=== PATIENT | female | born 2000 | race Caucasian/White ===

== ENCOUNTER 2024-01-28 19:18 | Emergency (ER) | payer OTHER, SELFPAY ==
[2024-01-28 19:24] VITALS: BP 144/08
[2024-01-28] MEDS: ZOFRAN 4 MG IV ×2 (20:09→21:30)
[2024-01-28 20:10] VITALS: BMI 26.6
[2024-01-28] MEDS: NSS 1000 IV (20:10)
[2024-01-28 20:21] VITALS: BP 143/79
[2024-01-28 20:30] LABS: % Basophils 0.5 % (0-2); % Eosinophils 0.2 % (0-6); % Immature Granulocytes 0.4 % (0-0.5); % Monocytes 4.6 % (1.7-9.3); % Neutrophils 82.3 % (42.2-75.2); Absolute Basophils 0.1 10^3/uL (0-0.2); Absolute Immature Granulocytes 0.1 10^3/uL (0-0.05); Absolute Lymphocytes 2.2 10^3/uL (1.2-3.4); Absolute Monocytes 0.9 10^3/uL (0.1-0.6); Absolute Neutrophils 15.2 10^3/uL (1.4-6.5); Hematocrit 45.9 % (37.0-47.0); Hemoglobin 16.4 g/dL (12.0-16.0); Mean Corp Hgb Conc. 35.7 g/dL (33.0-37.0); Mean Corpuscular Hgb 29.8 pg (27.0-31.0); Mean Corpuscular Volume 83.3 fL (81.0-99.0); Mean Platelet Volume 10.6 fL (7.4-10.4); Nucleated Red Blood Cells % 0 %; Platelet Count 458 10^3/uL (130-400); Red Blood Cell Count 5.51 10^6/uL (4.20-5.40); Red Cell Dist. Width 13.2 % (11.5-14.5); White Blood Cell Count 18.5 10^3/uL (4.8-10.8)
--- NOTE | 2024-01-28 20:39 | ED.GENMED ---
History of Present Illness
General
Chief Complaint: Abdominal Symptoms
Source: patient
Exam Limitations: none
Time Seen by Provider: 01/28/24 20:04
Nursing documentation reviewed up to this point in time: agreed with
Travel History
Have you had any contact with someone who has COVID-19?: No
Do you have any symptoms of coronavirus? Fever > 100 degrees, chills, cough, shortness of breath, sore throat, loss of taste or smell, muscle aches, or headache?: No
History of Present Illness
History of Present Illness:
Patient is a 23-year-old female who presents to the ER with abdominal pain and vomiting. Patient reports she has had this happen at least 3-4 times in the past where she has had to come to the ER for this. She reports last episode was 2 years ago
and she was seen at a hospital in [place] where she currently resides. She reports she was told this is associated with her marijuana use. She admits to smoking marijuana several times a day, last smoked around 3 PM today. She complains of
abdominal pain presently nausea vomiting with started around 5:30 PM. She denies any fever chills back pain. Denies any urinary frequency urgency or dysuria denies any constipation, diarrhea.
Phy Exam
General Physical Exam
General Presentation: no apparent distress
General age: appears stated age
General Skin: warm
General Habitus: normal
General Mental: alert
General Hydration: appears well hydrated
Cardiovascular Exam
Cardiovascular Exam: no murmur and tachycardia
Pulmonary Exam
Pulmonary Exam: lungs clear and no respiratory distress
Gastrointestinal Exam
Gastrointestinal Exam: non tender and soft
Neurological Exam
Neurological Exam: alert and oriented x3
Musculoskeletal Exam
Musculoskeletal Exam: full ROM
Skin Exam
Skin Exam: normal color and warm/dry
Psychiatric Exam
Psychiatric Exam: normal mood/affect
Course
Orders/Labs/Results
Orders:
Orders
01/28/24 20:01
Ondansetron Injectable [Zofran] 4 mg .ROUTE .STK-MED ONE
01/28/24 20:09
0.9% Sodium Chloride 1000 ml [Nss] 1,000 ml IV BOLUS
Ondansetron Injectable [Zofran] 4 mg IV NOW STA
01/28/24 20:23
CMP [Comprehensive Metabolic Panel] Urgent
Complete Blood Count/With Diff Urgent
HCG, Serum Qualitative Screen Urgent
Comment: ADD ON
01/28/24 20:41
Add On- LAB Urgent
Tests Added?: serum qualitative hcg
01/28/24 20:50
Haloperidol Lactate [Haldol] 5 mg IM NOW STA
01/28/24 20:51
Haloperidol Lactate [Haldol] 5 mg .ROUTE .STK-MED ONE
01/28/24 21:30
Ondansetron Injectable [Zofran] 4 mg IV NOW STA
01/28/24 22:17
Ketorolac [Toradol] 15 mg IV NOW STA
01/28/24 22:23
Capsaicin [Zostrix 0.025% Cream] See Dose Instructions TOPICAL NOW STA
Promethazine [Phenergan] 25 mg 0.9% Sodium Chloride 50 ml [Nss] 50 ml IV NOW
01/28/24 22:37
UA Reflex to Culture [Urinalysis Reflex To Culture] Urgent
Date Specimen was Collected: 01/28/24
Time Specimen was Collected: 22:36
Urine Microscopic Reflex Cult Urgent
Abnormal Lab Results
01/28/24 01/28/24
20:23 22:37
WBC 18.5 H 10^3/uL
(4.8-10.8)
RBC 5.51 H 10^6/uL
(4.20-5.40)
Hgb 16.4 H g/dL
(12.0-16.0)
Plt Count 458 H 10^3/uL
(130-400)
MPV 10.6 H fL
(7.4-10.4)
Abs Immat Gran (auto) 0.1 H 10^3/uL
(0-0.05)
Absolute Neuts (auto) 15.2 H 10^3/uL
(1.4-6.5)
Absolute Monos (auto) 0.9 H 10^3/uL
(0.1-0.6)
Neutrophils % 82.3 H %
(42.2-75.2)
Lymphocytes % 12.0 L %
(20.5-51.1)
Glucose 129 H mg/dl
(70-99)
Calcium 11.3 H mg/dl
(8.4-10.2)
Total Protein 8.7 H g/dl
(6.3-8.2)
Albumin 5.3 H g/dl
(3.5-5.0)
Urine Ketones 3+ A
(Negative)
Ur Occult Blood Reflex 3+ A
(Negative)
Leukocyte Esterase Rfl Trace A
(Negative)
Urine RBC 7-10 A /HPF
(0-2)
01/28/24 20:23
01/28/24 20:23
Vital Signs
Initial and Last Documented VS:
Initial Vital Signs
Pulse Resp BP Pulse Ox
114 26 144/08 99
01/28/24 19:24 01/28/24 19:24 01/28/24 19:24 01/28/24 19:24
Last Documented Vital Signs
Temp Pulse Resp BP Pulse Ox
97.8 F 72 19 125/86 97
01/28/24 22:08 01/28/24 23:45 01/28/24 23:45 01/28/24 23:00 01/28/24 21:30
Labor/Excavator consulted with Physician
Labor/Excavator consulted with physician?: Yes
Name of Physician Consulted: kevin
MDM/Problems Addressed
Differential Diagnosis Includes:
not limited to viral syndrome, hyperemesis related to cannabinoid use
MDM/Problems Addressed:
Patient is a 23-year-old female who smokes marijuana daily for years several times a day. She reports she had similar episode 2 years ago and this feels the same. She started vomiting having abdominal pain around 5 PM and last used marijuana at 3
PM. She presents awake alert anxious complaining of discomfort. Abdomen soft and nontender on exam. Case discussed with ED physician patient was given IV Zofran for nausea fluids and IM Haldol . Patient on reexam seem to have improved pain
however I was then called by the nurse stating the patient continues to have pain. Patient was reexamined by me abdomen remains soft and nontender. Case reviewed with ED physician will try Toradol capsaicin cream and Phenergan for nausea.
Symptoms are consistent with hyperemesis cannabinoid patient afebrile no recent illness no complaints of fever chills white count mildly elevated from likely vomiting, normal LFTs normal kidney function. abd soft non tender
Patient feeling much better requesting to go home will DC with Zofran with close outpatient follow-up educated patient on the importance of stopping marijuana
*Critical Care Note
Total Time (30-74mins, 75-104mins- exclusive of procedures): Not Applicable
ED Attending Note
-
Portions of this chart may have been created with voice recognition software.� Occasional wrong word or��sound alike� substitutions may have occurred due to the inherent limitations of voice recognition software.
Discharge Plan
Departure
Patient Disposition: Home (Routine Discharge)
Date of Disposition: 01/29/24
Time of Disposition: 00:17
Patient with high blood pressure during this ER visit?: Yes
Condition: Fair
Covid-19: Not Applicable
Discharge Problem:
Cannabinoid hyperemesis
Instructions: Cannabis hyperemesis syndrome, BLOOD PRESSURE
Prescriptions:
New
ondansetron 4 mg tablet,disintegrating
4 mg PO Q8H PRN (Reason: nausea and vomiting) Qty: 10 0RF
Referrals:
UNKNOWN - PT DOES,NOT KNOW [Family Provider] -
Activity Restrictions/Additional Instructions:
Follow-up with family doctor the next several days for reevaluation of symptoms. Stop using marijuana this is likely causing her symptoms. You were given a prescription for Zofran for nausea to needed. Follow-up closely with family doctor neck
several days but return of any worsening of symptoms including increasing pain vomiting fever chills or any further concerns
Interventions
Interventions:
*Risk Screen - Suicide Last Done: 01/28/24 19:24
*General Assessment Last Done: 01/28/24 20:11
*Neglect/Abuse Screening Last Done: 01/28/24 19:24
ED- Fall Risk Assessment Last Done: 01/28/24 20:10
*ED COVID-19 Vaccine History Last Done: 01/28/24 20:11
*Nursing Disposition Last Done: 01/29/24 00:35
GM-Japvbe-Ofaemyemzl Assessment Last Done: 01/28/24 20:13
Discharge Date and Time
Discharge Date/Time: 01/29/24 00:36
[2024-01-28 20:44] LABS: ALT (SGPT) 17 U/L (0-35); AST (SGOT) 28 U/L (14-36); Albumin 5.3 g/dl (3.5-5.0); Alkaline Phosphatase 86 U/L (38-126); Blood Urea Nitrogen 14 mg/dl (7-17); Calcium 11.3 mg/dl (8.4-10.2); Carbon Dioxide 22 mmol/L (22-30); Chloride 101 mmol/L (98-107); Estimated Creatinine Clearance 89 ml/min; Glucose 129 mg/dl (70-99); Potassium 3.8 mmol/L (3.5-5.1); Sodium 140 mmol/L (135-145); Total Bilirubin 0.5 mg/dl (0.2-1.3); Total Protein 8.7 g/dl (6.3-8.2); eGFR > 60.00
[2024-01-28] MEDS: HALDOL 5 MG IM (20:55)
[2024-01-28 21:00] VITALS: BP 137/106
[2024-01-28 21:06] LABS: HCG, Serum Qualitative Screen Negative
[2024-01-28 22:00] VITALS: BP 104/72
[2024-01-28] MEDS: TORADOL 15 MG IV (22:33)
[2024-01-28 22:47] LABS: Urine Albumin Trace (Neg - Trace); Urine Bilirubin Negative (Negative); Urine Character Clear (Clear); Urine Color Yellow; Urine Glucose Negative (Negative); Urine Ketone 3+ (Negative); Urine Leukocyte Trace (Negative); Urine Nitrite Negative (Negative); Urine Occult Blood 3+ (Negative); Urine Specific Gravity 1.015 (<1.030); Urine Urobilinogen Negative (Neg - 1+)
[2024-01-28 22:55] LABS: Urine Squamous Cell >30 /LPF (Few)
[2024-01-28 23:00] VITALS: BP 125/86
[2024-01-28] MEDS: ZOSTRIX 0.025% CREAM 1 APPLIC TOPICAL (23:01)
[2024-01-28] MEDS: PHENERGAN 51 MG IV (23:01)
== END 2024-01-29 00:36 | disposition home or self-care (01) ==
LOC: EMR 19:18
PROVIDERS: Nurse Practitioner; EMERGENCY PHYSICIAN Emergency Medicine
DX: R11.2 Nausea with vomiting, unspecified (principal); F12.90 Cannabis use, unspecified, uncomplicated; R03.0 Elevated blood-pressure reading, without diagnosis of hypertension
CPT/HCPCS: 99284; 96374; 96375 ×2; 96361; 96376; 96372; 80053; 81003; 81015; 84703; 85025

== ENCOUNTER 2024-05-31 17:41 | Emergency (ER) | payer OTHER, SELFPAY ==
[2024-05-31 17:45] VITALS: BP 146/88
[2024-05-31 18:00] LABS: % Basophils 0.6 % (0-2); % Eosinophils 0.1 % (0-6); % Immature Granulocytes 0.4 % (0-0.5); % Lymphocytes 8.2 % (20.5-51.1); % Monocytes 8.5 % (1.7-9.3); % Neutrophils 82.2 % (42.2-75.2); Absolute Basophils 0.1 10^3/uL (0-0.2); Absolute Immature Granulocytes 0.1 10^3/uL (0-0.05); Absolute Lymphocytes 1.2 10^3/uL (1.2-3.4); Absolute Monocytes 1.2 10^3/uL (0.1-0.6); Absolute Neutrophils 11.7 10^3/uL (1.4-6.5); Hematocrit 43.9 % (37.0-47.0); Hemoglobin 15.4 g/dL (12.0-16.0); Mean Corp Hgb Conc. 35.1 g/dL (33.0-37.0); Mean Corpuscular Hgb 30.2 pg (27.0-31.0); Mean Corpuscular Volume 86.1 fL (81.0-99.0); Mean Platelet Volume 10.2 fL (7.4-10.4); Nucleated Red Blood Cells % 0 %; Platelet Count 363 10^3/uL (130-400); Red Cell Dist. Width 13.3 % (11.5-14.5); White Blood Cell Count 14.2 10^3/uL (4.8-10.8)
[2024-05-31 18:13] LABS: ALT (SGPT) 14 U/L (0-35); AST (SGOT) 29 U/L (14-36); Albumin 4.8 g/dl (3.5-5.0); Alkaline Phosphatase 110 U/L (38-126); Blood Urea Nitrogen 20 mg/dl (7-17); Calcium 10.5 mg/dl (8.4-10.2); Carbon Dioxide 20 mmol/L (22-30); Chloride 109 mmol/L (98-107); Glucose 111 mg/dl (70-99); Lipase 64 U/L (23-300); Potassium 4.4 mmol/L (3.5-5.1); Sodium 142 mmol/L (135-145); Total Bilirubin 0.7 mg/dl (0.2-1.3); Total Protein 7.9 g/dl (6.3-8.2); eGFR 45.62
[2024-05-31] MEDS: LR 1000 IV (19:06)
[2024-05-31] MEDS: ZOFRAN 4 MG IV (19:06)
[2024-05-31 19:07] VITALS: BMI 26.7
[2024-05-31 19:11] VITALS: BP 137/75
[2024-05-31] MEDS: TORADOL 15 MG IV (19:51)
[2024-05-31 20:00] VITALS: BP 123/82
--- NOTE | 2024-05-31 20:21 | ED.GENMED ---
History of Present Illness
General
Chief Complaint: Abdominal Symptoms
Time Seen by Provider: 05/31/24 18:55
History of Present Illness
History of Present Illness:
23-year-old female with history of cyclic vomiting syndrome presents the emergency department for evaluation of nausea vomiting abdominal pain beginning today. For the past several days she has had a sore throat and upper respiratory tract symptoms
but these improved today. Vomiting began today and she has not been able to tolerate p.o. fluids. Denies fevers or chills. No lower urinary tract voiding symptoms
Review of Systems
Review of Systems
Allergies reviewed?: Yes
All Other Systems: ROS reviewed and negative except as documented in HPI and ROS
Phy Exam
Physical Exam
Physical Exam:
GEN: Well appearing, NAD, WDWN
HEENT: Oral mucosa moist, no scleral icterus
Cardiac: Regular rate
Lung: No respiratory distress, no tachypnea
Abdomen: Soft, non tender, non distended
MSK: No gross deformity or injuries
Skin: Good color, no pallor or jaundice, no rashes
Neuro: AO x3, moves all extremities freely
Psych: Calm, cooperative
Course
Orders/Labs/Results
Orders:
Orders
05/31/24 17:54
Complete Blood Count/With Diff Urgent
Comprehensive Metabolic Panel Urgent
Lipase Urgent
Influenza A+B Rapid Molecular Urgent
BRANDON Source: Nasal Swab
Specimen Description:
05/31/24 18:59
Lactated Ringers [Lr] 1,000 ml IV BOLUS
Ondansetron Injectable [Zofran] 4 mg IV NOW STA
05/31/24 19:45
Ketorolac [Toradol] 15 mg IV NOW STA
05/31/24 19:46
Urinalysis Reflex To Culture Urgent
Abnormal Lab Results
05/31/24
17:54
WBC 14.2 H 10^3/uL
(4.8-10.8)
Abs Immat Gran (auto) 0.1 H 10^3/uL
(0-0.05)
Absolute Neuts (auto) 11.7 H 10^3/uL
(1.4-6.5)
Absolute Monos (auto) 1.2 H 10^3/uL
(0.1-0.6)
Neutrophils % 82.2 H %
(42.2-75.2)
Lymphocytes % 8.2 L %
(20.5-51.1)
Chloride 109 H mmol/L
(98-107)
Carbon Dioxide 20 L mmol/L
(22-30)
BUN 20 H mg/dl
(7-17)
Creatinine 1.6 H mg/dL
(0.6-1.0)
Glucose 111 H mg/dl
(70-99)
Calcium 10.5 H mg/dl
(8.4-10.2)
05/31/24 17:54
05/31/24 17:54
Vital Signs
Initial and Last Documented VS:
Initial Vital Signs
Temp Pulse Resp BP Pulse Ox
98.5 F 61 17 146/88 94
05/31/24 17:45 05/31/24 17:45 05/31/24 17:45 05/31/24 17:45 05/31/24 17:45
Last Documented Vital Signs
Temp Pulse Resp BP Pulse Ox
98.5 F 61 17 123/82 97
05/31/24 17:45 05/31/24 17:45 05/31/24 17:45 05/31/24 20:00 05/31/24 20:00
MDM/Problems Addressed
MDM/Problems Addressed:
Labs suggest hypovolemia, likely self-limited viral syndrome. She has a benign abdominal exam thus there is no indication for abdominal CT at this time. Will prescribe antiemetics, given IV fluids in the emergency department with improvement.
*Critical Care Note
Total Time (30-74mins, 75-104mins- exclusive of procedures): Not Applicable
ED Attending Note
-
Portions of this chart may have been created with voice recognition software.� Occasional wrong word or��sound alike� substitutions may have occurred due to the inherent limitations of voice recognition software.
Discharge Plan
Departure
Patient Disposition: Home (Routine Discharge)
Date of Disposition: 05/31/24
Time of Disposition: 20:26
Patient with high blood pressure during this ER visit?: No
Discharge Problem:
Nausea and vomiting, Acute dehydration
Instructions: Nausea and Vomiting, Adult (DC)
Prescriptions:
New
ondansetron 4 mg tablet,disintegrating
4 mg PO TIDPRN PRN (Reason: nausea/vomiting) Qty: 10 0RF
No Action
omeprazole 40 mg Capsule,Delayed Release(Dr/Ec)
40 mg PO DAILY
escitalopram oxalate [Lexapro] 20 mg Tablet
20 mg PO DAILY
Referrals:
NONE,* [Family Provider] -
Interventions
Interventions:
*Risk Screen - Suicide Last Done: 05/31/24 19:14
*General Assessment Last Done: 05/31/24 19:14
*Neglect/Abuse Screening Last Done: 05/31/24 19:14
ED- Fall Risk Assessment Last Done: 05/31/24 19:14
*ED COVID-19 Vaccine History Last Done: 05/31/24 19:14
VY-Wmyzrg-Fytgasneyk Assessment Last Done: 05/31/24 19:14
Discharge Date and Time
Print Language: URDU
[2024-05-31 20:38] LABS: HCG, Serum Qualitative Screen Negative
[2024-05-31 21:00] VITALS: BP 128/91
== END 2024-05-31 22:00 | disposition home or self-care (01) ==
LOC: EMR 17:41
PROVIDERS: EMERGENCY PHYSICIAN Emergency Medicine
DX: E86.0 Dehydration (principal); R11.2 Nausea with vomiting, unspecified; J02.9 Acute pharyngitis, unspecified; R10.9 Unspecified abdominal pain
CPT/HCPCS: 99284; 96374; 96375; 96361; 80053; 83690; 84703; 85025; 87502

== ENCOUNTER 2024-06-01 09:45 | Emergency (ER) | payer OTHER, SELFPAY ==
[2024-06-01 10:04] VITALS: BP 148/90
[2024-06-01 11:20] VITALS: BP 135/86
--- NOTE | 2024-06-01 12:48 | ED.GENMED ---
History of Present Illness
General
Chief Complaint: Abdominal Symptoms
Source: patient
Exam Limitations: none
Time Seen by Provider: 06/01/24 11:02
Nursing documentation reviewed up to this point in time: agreed with
History of Present Illness
History of Present Illness:
Patient is a 23-year-old female presents to the ER for vomiting. Patient was seen here yesterday but symptoms continued today. She reports has a history of hyperemesis vomiting syndrome and this is marijuana 1 week ago. Patient denies any
abdominal pain.
Review of Systems
Review of Systems
Allergies reviewed?: Yes
All Other Systems: ROS reviewed and negative except as documented in HPI and ROS
Constitutional: Reports no symptoms; Denies fever, fatigue or chills
EENT: Reports no symptoms
Respiratory: Reports no symptoms
Cardiac: Reports no symptoms
ABD/GI: Reports nausea and vomiting; Denies abdominal pain
: Reports no symptoms
Musculoskeletal: Reports no symptoms
Skin: Reports no symptoms
Neurological: Reports no symptoms
Psychiatric: Reports no symptoms
Phy Exam
General Physical Exam
General Presentation: no apparent distress
General age: appears stated age
General Skin: warm and dry
General Habitus: normal
General Mental: alert
General Hydration: appears well hydrated
Gastrointestinal Exam
Gastrointestinal Exam: non tender and soft
Neurological Exam
Neurological Exam: alert and oriented x3
Musculoskeletal Exam
Musculoskeletal Exam: full ROM
Skin Exam
Skin Exam: normal color and warm/dry
Psychiatric Exam
Psychiatric Exam: normal mood/affect
Course
Orders/Labs/Results
Orders:
Orders
06/01/24 13:02
IV Insert/Care/Rem.- Treatment PRN
0.9% Sodium Chloride 1000 ml [Nss] 1,000 ml IV BOLUS
Ondansetron Injectable [Zofran] 4 mg IV NOW STA
06/01/24 13:03
Electrocardiogram (*1) Stat
Reason for Study: Other
Other Reason for Exam: chest pain
EKG- Treatment ONCE
Test Result ONCE
06/01/24 13:13
Complete Blood Count/With Diff Urgent
Comprehensive Metabolic Panel Urgent
HCG, Serum Qualitative Screen Urgent
06/01/24 13:22
Diphenhydramine [Benadryl] 25 mg IV NOW STA
Haloperidol Lactate [Haldol] 5 mg IV NOW STA
Abnormal Lab Results
06/01/24
13:13
WBC 16.3 H 10^3/uL
(4.8-10.8)
Abs Immat Gran (auto) 0.1 H 10^3/uL
(0-0.05)
Absolute Neuts (auto) 13.2 H 10^3/uL
(1.4-6.5)
Absolute Monos (auto) 1.3 H 10^3/uL
(0.1-0.6)
Neutrophils % 80.8 H %
(42.2-75.2)
Lymphocytes % 10.2 L %
(20.5-51.1)
Chloride 108 H mmol/L
(98-107)
Carbon Dioxide 18 L mmol/L
(22-30)
BUN 18 H mg/dl
(7-17)
Creatinine 1.7 H mg/dL
(0.6-1.0)
06/01/24 13:13
06/01/24 13:13
Vital Signs
Initial and Last Documented VS:
Initial Vital Signs
Temp Pulse Resp BP Pulse Ox
99.0 F 94 18 148/90 97
06/01/24 10:04 06/01/24 10:04 06/01/24 10:04 06/01/24 10:04 06/01/24 10:04
Last Documented Vital Signs
Temp Pulse Resp BP Pulse Ox
99.0 F 88 16 134/92 97
06/01/24 10:04 06/01/24 12:53 06/01/24 12:53 06/01/24 12:49 06/01/24 12:50
MDM/Problems Addressed
Differential Diagnosis Includes:
Not limited to dehydration, hyperemesis cannabinoid syndrome
MDM/Problems Addressed:
Patient is a 23 Y female with history of hyperemesis cannabinoid syndrome. She was seen here in January 2024 for this and received medications including Haldol which improved her symptoms. She reports at that time she was smoking daily she is still
smoking but not as much and last smoked a week ago. She was here yesterday for nausea and vomiting treated for dehydration presents back with similar symptoms. Abdomen soft nontender patient is afebrile white count elevated 16.3 likely from
cannabinol hyperemesis previously elevated in the past when she was here for similar symptoms January 2024 and also elevated yesterday. She is nontoxic however will treat with Haldol Zofran fluids Benadryl. EKG viewed.
1452:
Patient feeling better tolerating fluids labs reviewed BUN 18 creatinine 1.7 creatinine was 1.6 yesterday likely from dehydration. Will hydrate with additional liter. Patient is in between doctors at this time I did review with patient the
importance of staying hydrated and have this level rechecked will DC with family practice clinic information. Patient is also presently actively seeking a primary care physician.
Pt educated on marijuana sensation .
*Pulse Oximetry
Patient hypoxic: no
*Critical Care Note
Total Time (30-74mins, 75-104mins- exclusive of procedures): Not Applicable
Data Reviewed
Review of Other/Old Records Reveals: Other ( ED visit reviewed from yesterday )
ED Attending Note
-
Portions of this chart may have been created with voice recognition software.� Occasional wrong word or��sound alike� substitutions may have occurred due to the inherent limitations of voice recognition software.
Discharge Plan
Departure
Patient Disposition: Home (Routine Discharge)
Date of Disposition: 06/01/24
Time of Disposition: 14:54
Patient with high blood pressure during this ER visit?: Yes
Condition: Fair
Covid-19: Not Applicable
Discharge Problem:
Cannabinoid hyperemesis syndrome, Nausea & vomiting
Instructions: Cannabis use disorder, BLOOD PRESSURE, Acute Nausea and Vomiting
Prescriptions:
No Action
omeprazole 40 mg Capsule,Delayed Release(Dr/Ec)
40 mg PO DAILY
escitalopram oxalate [Lexapro] 20 mg Tablet
20 mg PO DAILY
ondansetron 4 mg tablet,disintegrating
4 mg PO TIDPRN PRN (Reason: nausea/vomiting) Qty: 10 0RF
Referrals:
[facility] [Provider Group]
[facility] [Outside]
NONE,* [Family Provider] -
Activity Restrictions/Additional Instructions:
As discussed stop using marijuana as these are causing your symptoms. Stay well-hydrated. Follow-up with family practice clinic/family doctor the next 2 days reevaluation of your symptoms. Also have your kidney function rechecked as it was
elevated today. Return if any worsening of symptoms.
Interventions
Interventions:
*Risk Screen - Suicide Last Done: 06/01/24 10:04
*General Assessment Last Done: 06/01/24 11:21
*Neglect/Abuse Screening Last Done: 06/01/24 10:04
*ED COVID-19 Vaccine History Last Done: 06/01/24 10:04
BA-Kngtna-Xdyvkwfufz Assessment Last Done: 06/01/24 11:22
Discharge Date and Time
Print Language: KITTITIAN
[2024-06-01 12:49] VITALS: BP 134/92
[2024-06-01] MEDS: NSS 1000 IV ×2 (13:14→14:52)
[2024-06-01 13:19] LABS: % Basophils 0.4 % (0-2); % Eosinophils 0.1 % (0-6); % Immature Granulocytes 0.5 % (0-0.5); % Lymphocytes 10.2 % (20.5-51.1); % Neutrophils 80.8 % (42.2-75.2); Absolute Basophils 0.1 10^3/uL (0-0.2); Absolute Immature Granulocytes 0.1 10^3/uL (0-0.05); Absolute Lymphocytes 1.7 10^3/uL (1.2-3.4); Absolute Monocytes 1.3 10^3/uL (0.1-0.6); Absolute Neutrophils 13.2 10^3/uL (1.4-6.5); Hematocrit 41.2 % (37.0-47.0); Hemoglobin 14.4 g/dL (12.0-16.0); Mean Corpuscular Hgb 29.9 pg (27.0-31.0); Mean Corpuscular Volume 85.5 fL (81.0-99.0); Mean Platelet Volume 10.4 fL (7.4-10.4); Nucleated Red Blood Cells % 0 %; Platelet Count 372 10^3/uL (130-400); Red Blood Cell Count 4.82 10^6/uL (4.20-5.40); Red Cell Dist. Width 13.4 % (11.5-14.5); White Blood Cell Count 16.3 10^3/uL (4.8-10.8)
[2024-06-01] MEDS: HALDOL 5 MG IV (13:25)
[2024-06-01] MEDS: ZOFRAN 4 MG IV (13:25)
[2024-06-01] MEDS: BENADRYL 25 MG IV (13:25)
[2024-06-01 13:36] LABS: ALT (SGPT) 10 U/L (0-35); AST (SGOT) 27 U/L (14-36); Albumin 4.8 g/dl (3.5-5.0); Alkaline Phosphatase 90 U/L (38-126); Blood Urea Nitrogen 18 mg/dl (7-17); Calcium 10.2 mg/dl (8.4-10.2); Carbon Dioxide 18 mmol/L (22-30); Chloride 108 mmol/L (98-107); Glucose 90 mg/dl (70-99); Potassium 4.2 mmol/L (3.5-5.1); Sodium 141 mmol/L (135-145); Total Bilirubin 0.6 mg/dl (0.2-1.3); Total Protein 7.7 g/dl (6.3-8.2); eGFR 42.42
[2024-06-01 13:38] LABS: HCG, Serum Qualitative Screen Negative
[2024-06-01 15:25] VITALS: BP 129/89
== END 2024-06-01 15:45 | disposition home or self-care (01) ==
LOC: EMR 09:45
PROVIDERS: Nurse Practitioner; EMERGENCY PHYSICIAN Emergency Medicine
DX: R11.2 Nausea with vomiting, unspecified (principal); F12.90 Cannabis use, unspecified, uncomplicated; R03.0 Elevated blood-pressure reading, without diagnosis of hypertension; Z86.16 Personal history of COVID-19
CPT/HCPCS: 99284; 96374; 96375 ×2; 96361 ×2; 80053; 84703; 85025; 93005

== ENCOUNTER 2024-06-09 01:43 | Emergency (ER) | payer OTHER, SELFPAY ==
[2024-06-09 01:45] VITALS: BP 135/94
--- NOTE | 2024-06-09 02:00 | ED.GENMED ---
History of Present Illness
<Dena Harris MD, Resident - Last Filed: 06/09/24 03:10>
General
Chief Complaint: Urinary Symptoms
Time Seen by Provider: 06/09/24 01:50
History of Present Illness
History of Present Illness:
23-year-old female presented to the ED with lower back pain. Patient states that she has been having some urgency and frequency and low back pain for the past week. She denies any pain or burning with urination. Patient is a she is sexually
active with a female. She does use contraception. Patient states that she did a home UTI test which was positive. her last menstrual period was 3 weeks ago. She also complains of left flank pain. She denies fever or chills.
Review of Systems
<Dena Harris MD, Resident - Last Filed: 06/09/24 03:10>
Review of Systems
: Reports frequency, flank pain and urgency
Phy Exam
<Dena Harris MD, Resident - Last Filed: 06/09/24 03:10>
General Physical Exam
General Presentation: well appearing and no apparent distress
Cardiovascular Exam
Cardiovascular Exam: regular rate/rhythm
Pulmonary Exam
Pulmonary Exam: lungs clear
Course
<Dena Harris MD, Resident - Last Filed: 06/09/24 03:10>
Orders/Labs/Results
Orders:
Orders
06/09/24 01:55
HCG, Urine Qualitative Screen Urgent
Date Specimen was Collected: 06/09/24
Time Specimen was Collected: 01:53
Comment: ADD ON
Urinalysis Reflex To Culture Urgent
Date Specimen was Collected: 06/09/24
Time Specimen was Collected: 01:53
Urine Microscopic Reflex Cult Urgent
06/09/24 01:57
Add On- LAB Urgent
Tests Added?: Urine, HCG Qual
06/09/24 03:09
Ibuprofen [Motrin] 600 mg PO NOW STA
Abnormal Lab Results
06/09/24
01:55
Leukocyte Esterase Rfl Trace A
(Negative)
Urine Bacteria (Reflex) Few A
(Negative)
Vital Signs
Initial and Last Documented VS:
Initial Vital Signs
Temp Pulse Resp BP Pulse Ox
98.9 F 77 14 135/94 98
06/09/24 01:45 06/09/24 01:45 06/09/24 01:45 06/09/24 01:45 06/09/24 01:45
Last Documented Vital Signs
Temp Pulse Resp BP Pulse Ox
98.9 F 77 14 135/94 98
06/09/24 01:45 06/09/24 01:45 06/09/24 01:45 06/09/24 01:45 06/09/24 01:45
<Ashvin Mar, DO - Last Filed: 06/09/24 02:11>
Orders/Labs/Results
Orders:
Orders
06/09/24 01:55
HCG, Urine Qualitative Screen Urgent
Date Specimen was Collected: 06/09/24
Time Specimen was Collected: 01:53
Comment: ADD ON
Urinalysis Reflex To Culture Urgent
Date Specimen was Collected: 06/09/24
Time Specimen was Collected: 01:53
Urine Microscopic Reflex Cult Urgent
06/09/24 01:57
Add On- LAB Urgent
Tests Added?: Urine, HCG Qual
06/09/24 03:09
Ibuprofen [Motrin] 600 mg PO NOW STA
Abnormal Lab Results
06/09/24
01:55
Leukocyte Esterase Rfl Trace A
(Negative)
Urine Bacteria (Reflex) Few A
(Negative)
Vital Signs
Initial and Last Documented VS:
Initial Vital Signs
Temp Pulse Resp BP Pulse Ox
98.9 F 77 14 135/94 98
06/09/24 01:45 06/09/24 01:45 06/09/24 01:45 06/09/24 01:45 06/09/24 01:45
Last Documented Vital Signs
Temp Pulse Resp BP Pulse Ox
98.9 F 77 14 135/94 98
06/09/24 01:45 06/09/24 01:45 06/09/24 01:45 06/09/24 01:45 06/09/24 01:45
<Dena Harris MD, Resident - Last Filed: 06/09/24 03:10>
*Critical Care Note
Total Time (30-74mins, 75-104mins- exclusive of procedures): Not Applicable
<Dean Harris MD, Resident - Last Filed: 06/09/24 03:10>
Update Note
Update Note:
23-year-old female presented to ED with left flank pain and low back pain ongoing for the past week. Will check UA to reflex culture for UTI.
ED Attending Note
<Dena Harris MD, Resident - Last Filed: 06/09/24 03:10>
-
Portions of this chart may have been created with voice recognition software.� Occasional wrong word or��sound alike� substitutions may have occurred due to the inherent limitations of voice recognition software.
<Ashvin Mar, - Last Filed: 06/09/24 02:11>
ED Attending Note
Patient seen and examined by attending physician: Yes
I performed a history and physical exam of patient and discussed management with resident, I reviewed resident's note and agree with documented findings and plan of care.: Yes
ED Attending Note:
Seen with resident agree with assessment and plan nontoxic 23-year-old female presents with urinary frequency left flank pain no fever no vomiting urinalysis pending hCG negative
Discharge Plan
Departure
Patient Disposition: Home (Routine Discharge)
Date of Disposition: 06/09/24
Time of Disposition: 03:00
Patient with high blood pressure during this ER visit?: No
Discharge Problem:
UTI (urinary tract infection)
Instructions: Urinary Tract Infection, Adult ED
Prescriptions:
New
sulfamethoxazole-trimethoprim [Bactrim DS] 800-160 mg tablet
1 tab PO ONCE 3 Days Qty: 3 0RF
Rx Instructions:
1 tab to be taken with food once a day
ibuprofen 600 mg tablet
600 mg PO ONCE 7 Days Qty: 7 0RF
No Action
omeprazole 40 mg Capsule,Delayed Release(Dr/Ec)
40 mg PO DAILY
escitalopram oxalate [Lexapro] 20 mg Tablet
20 mg PO DAILY
ondansetron 4 mg tablet,disintegrating
4 mg PO TIDPRN PRN (Reason: nausea/vomiting) Qty: 10 0RF
Referrals:
NONE,* [Family Provider] -
Interventions
Interventions:
*Risk Screen - Suicide Last Done: 06/09/24 01:45
*General Assessment Last Done: 06/09/24 01:45
*Neglect/Abuse Screening Last Done: 06/09/24 01:45
ED- Fall Risk Assessment Last Done: 06/09/24 01:58
ED-Female Genitourinary Assessment Last Done: 06/09/24 01:58
Discharge Date and Time
Print Language: STATELESS
[2024-06-09 02:04] LABS: Urine Albumin Negative (Neg - Trace); Urine Bilirubin Negative (Negative); Urine Character Clear (Clear); Urine Color Yellow; Urine Glucose Negative (Negative); Urine Ketone Negative (Negative); Urine Leukocyte Trace (Negative); Urine Nitrite Negative (Negative); Urine Occult Blood Negative (Negative); Urine Urobilinogen Negative (Neg - 1+); Urine pH 6.5 (5.0-9.0)
[2024-06-09 02:06] LABS: HCG, Urine Qualitative Screen Negative
[2024-06-09 02:54] LABS: Urine Squamous Cell >30 /LPF (Few)
[2024-06-09 02:55] LABS: Urine Bacteria Few (Negative); Urine Red Blood Cell 0-2 /HPF (0-2)
[2024-06-09] MEDS: MOTRIN 600 MG PO (03:14)
[2024-06-09 03:18] VITALS: BP 121/88
== END 2024-06-09 03:19 | disposition home or self-care (01) ==
LOC: EMR 01:43
PROVIDERS: Student in an Organized Health Care Education/Training Program; EMERGENCY PHYSICIAN Emergency Medicine
DX: N39.0 Urinary tract infection, site not specified (principal); Z87.440 Personal history of urinary (tract) infections
CPT/HCPCS: 99283; 81003; 81015; 81025